=== PATIENT | male | born 1955 | race Caucasian/White ===

== ENCOUNTER 2024-09-12 09:22 | Inpatient (IN) | payer MEDICARE, BC ==
[~2024-09-12] VITALS: Ht 177.8 cm; Wt 85.0 kg
[~2024-09-12 09:22] MED LIST: AMI200T PO; ASPI-1265 PO; ATOR10TA70 PO; CHOL10002 PO; CLOP75TA34 PO; GABA-532 PO; GLIP-192 PO; LEVO100T9 PO; LOP25T PO; LOSA50TA64 PO; METF-900 PO; NITR0.4T51 SL; OMEP40CA21 PO
[2024-09-12 10:05] LABS: BASOPHILS # (AUTO) 0.1 X10'3 (0-0.2); BASOPHILS % (AUTO) 0.6 % (0-1); EOSINOPHILS # (AUTO) 0.1 X10'3 (0-0.9); EOSINOPHILS % (AUTO) 1.1 % (0-6); HEMATOCRIT 47.5 % (42.0-52.0); LYMPHOCYTES # (AUTO) 1.9 X10'3 (1.1-4.8); LYMPHOCYTES % (AUTO) 16.5 % (21-51); MEAN CORPUSCULAR HEMOGLOBIN 31.4 PG (27.0-31.0); MEAN CORPUSCULAR HGB CONC 33.6 g/dL (33.0-36.5); MEAN CORPUSCULAR VOLUME 93.3 FL (78-98); MEAN PLATELET VOLUME 8.7 FL (7.4-10.4); MONOCYTES # (AUTO) 1.3 X10'3 (0-0.9); MONOCYTES % (AUTO) 10.9 % (2-12); NEUTROPHILS # (AUTO) 8.4 X10'3 (1.8-7.7); NEUTROPHILS % (AUTO) 70.9 % (42-75); PLATELET COUNT 259 X10'3 (140-440); RED BLOOD COUNT 5.09 X10'6 (4.70-6.10); WHITE BLOOD COUNT 11.8 X10'3 (4.5-11.0)
[2024-09-12 10:24] LABS: ALANINE AMINOTRANSFERASE 13 U/L (12-78); ALBUMIN 3.5 G/DL (3.4-5.0); ALBUMIN/GLOBULIN RATIO 0.8 (1.1-1.5); ALKALINE PHOSPHATASE 63 IU/L (46-116); ANION GAP 11 (8-16); ASPARTATE AMINO TRANSFERASE 6 U/L (10-37); BILIRUBIN,TOTAL 0.8 MG/DL (0.1-1.0); BLOOD UREA NITROGEN 29 MG/DL (7-18); BUN/CREATININE RATIO 18.4 (10.0-20.0); CALCIUM 9.9 MG/DL (8.5-10.1); CHLORIDE 102 MMOL/L (99-107); CREATININE 1.58 MG/DL (0.60-1.10); GLUCOSE 185 MG/DL (70-104); POTASSIUM 5.1 MMOL/L (3.5-5.1); SODIUM 139 MMOL/L (135-145); TOTAL CARBON DIOXIDE 25.9 MMOL/L (24-32); TOTAL PROTEIN 7.9 G/DL (6.4-8.2); eCRCL 46 ML/MIN; eGFR 43 ML/MIN
[2024-09-12] MEDS ORDERED: iohexol 350MG/ML 100ml bottle IV ONE (11:49)
[2024-09-12] MEDS: TETanus/Pertussis (Acell)/Diphther VAC/PF (Tdap-Adult) 0.5ml syringe IMVAC ONE (11:52)
[2024-09-12 12:01] LABS: APTT 28 SECONDS (22-32); INR 1.1 INR; PROTHROMBIN TIME 11.4 SECONDS (9.0-12.0)
[2024-09-12] MEDS: normal saline 1000ml 1,000 ML IV ONE (12:29)
[2024-09-12] MEDS ORDERED: potassium Cl 20 mEq SR tablet PO PRN ×2 (14:20)
[2024-09-12] MEDS ORDERED: magnesium sulf-water 4G/100mL 100 ML IV PRN (14:20)
[2024-09-12] MEDS ORDERED: mag hydrox/Alum hydrox/simeth 30ml oral suspension PO PRN (14:20)
[2024-09-12] MEDS ORDERED: magnesium Cl slow-release 64mg tablet PO PRN (14:20)
[2024-09-12] MEDS ORDERED: magnesium sulf-water 2g/50mL 50 ML IV PRN (14:20)
[2024-09-12] MEDS ORDERED: ondansetron/PF 4mg/2ml inj IV PRN (14:20)
[2024-09-12] MEDS ORDERED: potassium Cl 40MEQ/1/2NS 520ml 520 ML IV PRN (14:20)
[2024-09-12] MEDS: normal saline 1000ml 1,000 ML IV SCH (14:40)
[2024-09-12] MEDS ORDERED: METF-900 PO ×2 (14:57)
[2024-09-12] MEDS ORDERED: FERR325T28 PO (14:59)
[2024-09-12] MEDS: aspirin 81mg, enteric-coated 1 TAB TABLET.DR PO SCH (15:04)
[2024-09-12] MEDS: CefTRIAXone/D5W-Rocephin 1gm 50 ML IV SCH (15:04)
[2024-09-12] MEDS: PERFLUTREN PROTEIN-A MICROSPHR (Optison) 0.22 MG/ML 3ML VIAL IV ONE (15:19)
[2024-09-12 15:34] LABS: HEMOGLOBIN A1C 5.2 % (4.5-6.2)
[2024-09-12] MEDS ORDERED: ceFAZolin/D5W- 1GM premix 50 ML IV SCH (16:00)
[2024-09-12] MEDS: K and/or MAG REPLACEMENT MC SCH (16:31)
[2024-09-12] MEDS: amiodarone 200mg tablet PO SCH (19:10)
[2024-09-12] MEDS ORDERED: labetalol 20mg/4ml (5mg/ml) syringe IV PRN (19:20)
[2024-09-12] MEDS ORDERED: glucagon, human recombinant 1mg kit SUBCUT PRN (19:25)
[2024-09-12] MEDS ORDERED: DEXTROSE 15 GM of carb/4 tabs (each vial/BOTTLE has 4 tablets) PO PRN ×2 (19:25)
[2024-09-12] MEDS ORDERED: dextrose 50%-water 50ml dispensing syringe IV PRN ×2 (19:25)
[2024-09-12 20:06] LABS: ALANINE AMINOTRANSFERASE 10 U/L (12-78); ALBUMIN 3.2 G/DL (3.4-5.0); ALBUMIN/GLOBULIN RATIO 0.7 (1.1-1.5); ALKALINE PHOSPHATASE 55 IU/L (46-116); ASPARTATE AMINO TRANSFERASE 12 U/L (10-37); BILIRUBIN,DIRECT 0.2 MG/DL (0-0.3); BILIRUBIN,TOTAL 0.7 MG/DL (0.1-1.0); FREE T4 (FREE THYROXINE) 1.39 NG/DL (0.73-1.40); THYROID STIMULATING HORMONE 1.89 ulU/ml (0.34-4.50); TOTAL PROTEIN 7.7 G/DL (6.4-8.2)
[2024-09-12] MEDS: atorvastatin 10mg tablet PO SCH (20:50)
[2024-09-12] MEDS: gabapentin 300mg capsule PO SCH (20:51)
[2024-09-12] MEDS: levoTHYROXINE 100mcg tablet PO SCH (20:51)
[2024-09-12] MEDS: docusate sod 100mg capsule PO SCH (20:51)
[2024-09-12] MEDS: metoprolol tartrate 25mg tablet PO SCH (20:55)
[2024-09-12] MEDS: INSULIN LISPRO 100 UNIT/ML INSULN.PEN MULTI-DOSE SQ SCH (21:00)
[2024-09-13 04:38] LABS: BASOPHILS # (AUTO) 0.1 X10'3 (0-0.2); BASOPHILS % (AUTO) 0.4 % (0-1); EOSINOPHILS # (AUTO) 0.2 X10'3 (0-0.9); EOSINOPHILS % (AUTO) 1.2 % (0-6); HEMATOCRIT 44.9 % (42.0-52.0); HEMOGLOBIN 14.7 g/dl (14.0-17.9); LYMPHOCYTES # (AUTO) 1.6 X10'3 (1.1-4.8); LYMPHOCYTES % (AUTO) 11.4 % (21-51); MEAN CORPUSCULAR HGB CONC 32.7 g/dL (33.0-36.5); MEAN CORPUSCULAR VOLUME 94.8 FL (78-98); MONOCYTES # (AUTO) 1.5 X10'3 (0-0.9); MONOCYTES % (AUTO) 10.5 % (2-12); NEUTROPHILS # (AUTO) 10.6 X10'3 (1.8-7.7); NEUTROPHILS % (AUTO) 76.5 % (42-75); PLATELET COUNT 264 X10'3 (140-440); RED BLOOD COUNT 4.74 X10'6 (4.70-6.10); RED CELL DISTRIBUTION WIDTH 14.9 % (11.5-14.5); WHITE BLOOD COUNT 13.9 X10'3 (4.5-11.0)
[2024-09-13] MEDS: diltiazem 5mg/ml 5ml inj. IV ONE ×2 (04:50→06:10)
[2024-09-13 05:02] LABS: ANION GAP 15 (8-16); BLOOD UREA NITROGEN 27 MG/DL (7-18); BUN/CREATININE RATIO 20.3 (10.0-20.0); CALCIUM 9.1 MG/DL (8.5-10.1); CHLORIDE 102 MMOL/L (99-107); CHOLESTEROL 116 MG/DL (0-200); CREATININE 1.33 MG/DL (0.60-1.10); GLUCOSE 184 MG/DL (70-104); HDL CHOLESTEROL 39 MG/DL (35-60); LDL CHOLESTEROL 61 MG/DL (50-100); MAGNESIUM 1.5 MG/DL (1.5-2.4); POTASSIUM 4.3 MMOL/L (3.5-5.1); SODIUM 140 MMOL/L (135-145); TOTAL CARBON DIOXIDE 23.5 MMOL/L (24-32); TRIGLYCERIDES 108 MG/DL (20-135); eCRCL 54 ML/MIN; eGFR 53 ML/MIN
[2024-09-13 13:00] LABS: BILIRUBIN,URINE NEGATIVE (Neg); CLARITY,URINE CLEAR (Clear); COLOR,URINE YELLOW (Yellow); GLUCOSE, URINE NEGATIVE (Neg); KETONES,URINE NEGATIVE (Neg); LEUKOCYTE ESTERASE ,URINE NEGATIVE (Neg); NITRITES, URINE NEGATIVE (Neg); OCCULT BLOOD,URINE NEGATIVE (Neg); PROTEIN,URINE 30 mg/dl (Neg); UROBILINOGEN,URINE 0.2 E.U/dL (0.2-1.0)
[2024-09-13 13:01] LABS: UA COLLECTION TYPE URINAL
[2024-09-13 13:06] LABS: BACTERIA,URINE NONE SEEN /HPF (Neg); WBC,URINE 0-4 /HPF (0-4)
[2024-09-13 13:07] LABS: COARSE GRANULAR CAST 0-3 /LPF (NEGATIVE); SQUAMOUS EPITHELIAL CELL,UR FEW /LPF (FEW)
[2024-09-13 13:26] LABS: URINE AMPHETAMINE SCREEN NEGATIVE (Neg); URINE BARBITUATE SCREEN NEGATIVE (Neg); URINE BENZODIAZEPINES SCREEN NEGATIVE (Neg); URINE CANNABINOID SCREEN NEGATIVE (Neg); URINE COCAINE SCREEN NEGATIVE (Neg); URINE METHADONE SCREEN NEGATIVE (Neg); URINE OPIATE SCREEN NEGATIVE (Neg); URINE PHENCYCLIDINE SCREEN NEGATIVE (Neg)
[2024-09-13] MEDS ORDERED: GADOTERATE MEGLUMINE 7.5 MMOL/15 ML VIAL IV ONE (17:42)
[2024-09-13 18:10] VITALS: BP 135/75; PULSE 114; O2SAT 97
[2024-09-13 20:00] VITALS: BP 134/80; PULSE 106; RESP 23; O2SAT 99
[2024-09-13] MEDS: acetaminophen 325mg tablet PO PRN (21:37)
[2024-09-13 22:00] VITALS: BP 151/86; PULSE 128; RESP 23; TEMP 97.5; O2SAT 99
[2024-09-13] MEDS: LORazepam 2 mg/ml vial IV PRN (23:14)
[2024-09-14] VITALS (8 sets, daily range): BP systolic 138–171; BP diastolic 69–104; PULSE 98–138; RESP 16–20; TEMP 97.4–98.8; O2SAT 95–98
[2024-09-14] MEDS: metoprolol tartrate 1mg/ml inj IV ONE (02:29)
[2024-09-14] MEDS: haloperidol lactate 5mg/ml inj IM ONE (05:40)
[2024-09-14 06:44] LABS: BASOPHILS % (AUTO) 0.4 % (0-1); EOSINOPHILS # (AUTO) 0.1 X10'3 (0-0.9); EOSINOPHILS % (AUTO) 1.4 % (0-6); HEMATOCRIT 44.2 % (42.0-52.0); HEMOGLOBIN 14.7 g/dl (14.0-17.9); LYMPHOCYTES # (AUTO) 1.5 X10'3 (1.1-4.8); LYMPHOCYTES % (AUTO) 15.6 % (21-51); MEAN CORPUSCULAR HEMOGLOBIN 31.4 PG (27.0-31.0); MEAN CORPUSCULAR HGB CONC 33.3 g/dL (33.0-36.5); MEAN CORPUSCULAR VOLUME 94.4 FL (78-98); MONOCYTES # (AUTO) 1.3 X10'3 (0-0.9); MONOCYTES % (AUTO) 13.4 % (2-12); NEUTROPHILS # (AUTO) 6.6 X10'3 (1.8-7.7); NEUTROPHILS % (AUTO) 69.2 % (42-75); PLATELET COUNT 221 X10'3 (140-440); RED BLOOD COUNT 4.69 X10'6 (4.70-6.10); RED CELL DISTRIBUTION WIDTH 14.8 % (11.5-14.5); WHITE BLOOD COUNT 9.6 X10'3 (4.5-11.0)
[2024-09-14 06:47] LABS: ALBUMIN 2.8 G/DL (3.4-5.0); ANION GAP 9 (8-16); BLOOD UREA NITROGEN 21 MG/DL (7-18); BUN/CREATININE RATIO 19.6 (10.0-20.0); CALCIUM 9.6 MG/DL (8.5-10.1); CHLORIDE 104 MMOL/L (99-107); CREATININE 1.07 MG/DL (0.60-1.10); GLUCOSE 169 MG/DL (70-104); MAGNESIUM 1.6 MG/DL (1.5-2.4); SODIUM 139 MMOL/L (135-145); TOTAL CARBON DIOXIDE 25.8 MMOL/L (24-32); eCRCL 76 ML/MIN; eGFR 68 ML/MIN
[2024-09-14] MEDS: metoprolol tartrate 25mg tablet PO ONE (10:02)
[2024-09-14] MEDS ORDERED: OLANZapine **IM** 10 mg inj. IM ONE (12:40)
[2024-09-14] MEDS ORDERED: OLANZapine **IM** 10 mg inj. IM PRN (14:05)
[2024-09-14] MEDS: ciprofloxacin 0.3% 2.5ml ophthalmic solution EACHEYE ONE (15:03)
[2024-09-14] MEDS: metoprolol tartrate 50mg tablet PO SCH (19:19)
[2024-09-14] MEDS: HYDROcodone/acetaminophen 5mg/325mg tablet PO PRN (20:51)
[2024-09-15] VITALS (8 sets, daily range): BP systolic 129–147; BP diastolic 59–86; PULSE 95–141; RESP 11–20; TEMP 97.2–98.6; O2SAT 97–99
[2024-09-15 07:11] LABS: BASOPHILS # (AUTO) 0.1 X10'3 (0-0.2); BASOPHILS % (AUTO) 0.8 % (0-1); EOSINOPHILS # (AUTO) 0.2 X10'3 (0-0.9); EOSINOPHILS % (AUTO) 2.8 % (0-6); HEMATOCRIT 40.7 % (42.0-52.0); HEMOGLOBIN 13.6 g/dl (14.0-17.9); LYMPHOCYTES # (AUTO) 1.2 X10'3 (1.1-4.8); LYMPHOCYTES % (AUTO) 14.3 % (21-51); MEAN CORPUSCULAR HEMOGLOBIN 31.2 PG (27.0-31.0); MEAN CORPUSCULAR HGB CONC 33.3 g/dL (33.0-36.5); MEAN CORPUSCULAR VOLUME 93.7 FL (78-98); MEAN PLATELET VOLUME 9.1 FL (7.4-10.4); MONOCYTES % (AUTO) 11.7 % (2-12); NEUTROPHILS # (AUTO) 6.1 X10'3 (1.8-7.7); NEUTROPHILS % (AUTO) 70.4 % (42-75); PLATELET COUNT 237 X10'3 (140-440); RED BLOOD COUNT 4.34 X10'6 (4.70-6.10); RED CELL DISTRIBUTION WIDTH 14.7 % (11.5-14.5); WHITE BLOOD COUNT 8.7 X10'3 (4.5-11.0)
[2024-09-15 07:31] LABS: ALBUMIN 2.3 G/DL (3.4-5.0); ANION GAP 9 (8-16); BLOOD UREA NITROGEN 17 MG/DL (7-18); BUN/CREATININE RATIO 18.5 (10.0-20.0); CHLORIDE 109 MMOL/L (99-107); CREATININE 0.92 MG/DL (0.60-1.10); GLUCOSE 138 MG/DL (70-104); MAGNESIUM 1.7 MG/DL (1.5-2.4); SODIUM 142 MMOL/L (135-145); TOTAL CARBON DIOXIDE 23.9 MMOL/L (24-32); eCRCL 89 ML/MIN; eGFR 81 ML/MIN
[2024-09-15] MEDS: metoprolol tartrate 1mg/ml inj IV STA (15:16)
[2024-09-15] MEDS ORDERED: DULA1.5P SUBCUT (17:51)
[2024-09-15] MEDS ORDERED: SOTA80TA73 PO (17:51)
[2024-09-15] MEDS ORDERED: PANT-47 PO (17:51)
[2024-09-15] MEDS ORDERED: AMLO2.5T2 PO (17:51)
[2024-09-15] MEDS ORDERED: HYDR12.55 PO (17:51)
[2024-09-15] MEDS: metoprolol tartrate 25mg tablet PO SCH (19:40)
[2024-09-15] MEDS: sotalol 80mg tablet PO SCH (19:41)
[2024-09-15] MEDS: diltiazem 5mg/ml 5ml inj. IV ONE (22:45)
[2024-09-16] VITALS (13 sets, daily range): BP systolic 132–182; BP diastolic 59–105; PULSE 100–164; RESP 14–27; TEMP 96.9–99.4; O2SAT 96–98
[2024-09-16] MEDS: metoprolol tartrate 1mg/ml inj IV ONE ×3 (04:03→16:28)
[2024-09-16 06:33] LABS: BASOPHILS % (AUTO) 0.5 % (0-1); EOSINOPHILS # (AUTO) 0.2 X10'3 (0-0.9); EOSINOPHILS % (AUTO) 1.8 % (0-6); HEMATOCRIT 37.8 % (42.0-52.0); HEMOGLOBIN 12.6 g/dl (14.0-17.9); LYMPHOCYTES # (AUTO) 1.1 X10'3 (1.1-4.8); LYMPHOCYTES % (AUTO) 12.1 % (21-51); MEAN CORPUSCULAR HEMOGLOBIN 31.1 PG (27.0-31.0); MEAN CORPUSCULAR HGB CONC 33.3 g/dL (33.0-36.5); MEAN CORPUSCULAR VOLUME 93.4 FL (78-98); MEAN PLATELET VOLUME 8.8 FL (7.4-10.4); MONOCYTES # (AUTO) 1.2 X10'3 (0-0.9); MONOCYTES % (AUTO) 13.1 % (2-12); NEUTROPHILS # (AUTO) 6.7 X10'3 (1.8-7.7); NEUTROPHILS % (AUTO) 72.5 % (42-75); PLATELET COUNT 247 X10'3 (140-440); RED BLOOD COUNT 4.05 X10'6 (4.70-6.10); RED CELL DISTRIBUTION WIDTH 14.5 % (11.5-14.5); WHITE BLOOD COUNT 9.2 X10'3 (4.5-11.0)
[2024-09-16 06:37] LABS: ALBUMIN 2.3 G/DL (3.4-5.0); ANION GAP 12 (8-16); BLOOD UREA NITROGEN 15 MG/DL (7-18); BUN/CREATININE RATIO 14.9 (10.0-20.0); CALCIUM 8.2 MG/DL (8.5-10.1); CHLORIDE 108 MMOL/L (99-107); CREATININE 1.01 MG/DL (0.60-1.10); GLUCOSE 152 MG/DL (70-104); MAGNESIUM 1.2 MG/DL (1.5-2.4); SODIUM 141 MMOL/L (135-145); TOTAL CARBON DIOXIDE 21.5 MMOL/L (24-32); eCRCL 69 ML/MIN; eGFR 73 ML/MIN
[2024-09-16] MEDS: pantoprazole 40mg Tablet.DR PO SCH (08:32)
[2024-09-16] MEDS ORDERED: magnesium sulf-water 2g/50mL 50 ML IV PRN (16:55)
[2024-09-16] MEDS ORDERED: magnesium sulf-water 4G/100mL 100 ML IV PRN (16:55)
[2024-09-16] MEDS: digoxin 250mcg/ml 2ml ampule IV ONE (16:56)
[2024-09-16] MEDS: hydrALAZINE 20mg/ml inj. IV ONE (18:07)
[2024-09-16] MEDS ORDERED: diltiazem-D5W 125mg/125ml 125 ML IV SCH (19:40)
[2024-09-16] MEDS: diltiazem 5mg/ml 5ml inj. IV ONE (20:36)
[2024-09-16] MEDS: diltiazem-NS 100mg/100ml 100 ML IV SCH (21:06)
[2024-09-16] MEDS ORDERED: digoxin 250mcg/ml 2ml ampule IV ONE (22:20)
[2024-09-17] VITALS (13 sets, daily range): BP systolic 104–165; BP diastolic 56–99; PULSE 76–112; RESP 15–24; TEMP 96.8–97.8; O2SAT 96–100
[2024-09-17] MEDS ORDERED: digoxin 250mcg/ml 2ml ampule IV ONE (06:20)
[2024-09-17 07:14] LABS: BASOPHILS % (AUTO) 0.4 % (0-1); EOSINOPHILS # (AUTO) 0.1 X10'3 (0-0.9); EOSINOPHILS % (AUTO) 1.2 % (0-6); HEMATOCRIT 41.7 % (42.0-52.0); HEMOGLOBIN 13.9 g/dl (14.0-17.9); LYMPHOCYTES % (AUTO) 10.2 % (21-51); MEAN CORPUSCULAR HGB CONC 33.3 g/dL (33.0-36.5); MEAN CORPUSCULAR VOLUME 93.3 FL (78-98); MEAN PLATELET VOLUME 8.6 FL (7.4-10.4); MONOCYTES # (AUTO) 1.4 X10'3 (0-0.9); MONOCYTES % (AUTO) 14.2 % (2-12); NEUTROPHILS # (AUTO) 7.5 X10'3 (1.8-7.7); PLATELET COUNT 307 X10'3 (140-440); RED BLOOD COUNT 4.47 X10'6 (4.70-6.10); RED CELL DISTRIBUTION WIDTH 14.5 % (11.5-14.5); WHITE BLOOD COUNT 10.2 X10'3 (4.5-11.0)
[2024-09-17] MEDS: sotalol HCl 40mg (1/2 tablet) PO SCH (07:32)
[2024-09-17 07:37] LABS: ALBUMIN 2.4 G/DL (3.4-5.0); ANION GAP 10 (8-16); BLOOD UREA NITROGEN 12 MG/DL (7-18); BUN/CREATININE RATIO 12.2 (10.0-20.0); CALCIUM 9.1 MG/DL (8.5-10.1); CHLORIDE 104 MMOL/L (99-107); CREATININE 0.98 MG/DL (0.60-1.10); GLUCOSE 156 MG/DL (70-104); POTASSIUM 4.6 MMOL/L (3.5-5.1); SODIUM 139 MMOL/L (135-145); TOTAL CARBON DIOXIDE 25.5 MMOL/L (24-32); eCRCL 71 ML/MIN; eGFR 75 ML/MIN
[2024-09-17] MEDS: diltiazem 30mg tablet PO SCH (14:08)
[2024-09-17] MEDS: lactose-reduced food (Ensure Enlive) - 237ml bottle PO SCH (18:37)
[2024-09-18 02:00] VITALS: BP 144/64; PULSE 97; RESP 24; TEMP 97.3; O2SAT 97
[2024-09-18] MEDS: magnesium hydroxide 30ml (MOM) UD suspension PO PRN (03:01)
[2024-09-18 06:00] VITALS: BP 150/92; PULSE 76; RESP 20; TEMP 97; O2SAT 98
[2024-09-18 06:11] LABS: BASOPHILS # (AUTO) 0.1 X10'3 (0-0.2); BASOPHILS % (AUTO) 0.7 % (0-1); EOSINOPHILS # (AUTO) 0.2 X10'3 (0-0.9); EOSINOPHILS % (AUTO) 1.9 % (0-6); HEMATOCRIT 37.4 % (42.0-52.0); HEMOGLOBIN 12.6 g/dl (14.0-17.9); LYMPHOCYTES # (AUTO) 1.2 X10'3 (1.1-4.8); LYMPHOCYTES % (AUTO) 13.9 % (21-51); MEAN CORPUSCULAR HGB CONC 33.7 g/dL (33.0-36.5); MEAN CORPUSCULAR VOLUME 92.2 FL (78-98); MEAN PLATELET VOLUME 8.2 FL (7.4-10.4); MONOCYTES # (AUTO) 1.1 X10'3 (0-0.9); MONOCYTES % (AUTO) 13.5 % (2-12); NEUTROPHILS # (AUTO) 5.9 X10'3 (1.8-7.7); PLATELET COUNT 299 X10'3 (140-440); RED BLOOD COUNT 4.06 X10'6 (4.70-6.10); RED CELL DISTRIBUTION WIDTH 14.6 % (11.5-14.5); WHITE BLOOD COUNT 8.5 X10'3 (4.5-11.0)
[2024-09-18 06:43] LABS: ALANINE AMINOTRANSFERASE 28 U/L (12-78); ALBUMIN/GLOBULIN RATIO 0.5 (1.1-1.5); ALKALINE PHOSPHATASE 54 IU/L (46-116); ANION GAP 11 (8-16); ASPARTATE AMINO TRANSFERASE 21 U/L (10-37); BILIRUBIN,TOTAL 1.2 MG/DL (0.1-1.0); BLOOD UREA NITROGEN 14 MG/DL (7-18); BUN/CREATININE RATIO 16.3 (10.0-20.0); CALCIUM 8.4 MG/DL (8.5-10.1); CHLORIDE 106 MMOL/L (99-107); CREATININE 0.86 MG/DL (0.60-1.10); GLUCOSE 165 MG/DL (70-104); POTASSIUM 3.7 MMOL/L (3.5-5.1); SODIUM 140 MMOL/L (135-145); TOTAL CARBON DIOXIDE 23.5 MMOL/L (24-32); eCRCL 81 ML/MIN; eGFR 88 ML/MIN
[2024-09-18 08:00] VITALS: RESP 20; O2SAT 98
[2024-09-18 11:00] VITALS: BP 110/55; PULSE 57; RESP 18; TEMP 97.8; O2SAT 92
== END 2024-09-18 14:35 | DRG 64 ==
LOC: ER 09:22 → ED HOLD 14:30 → PCU 3S 09-13 18:00
PROVIDERS: ADMIT Family Medicine; ATTEND Family Medicine
PROC: B3251ZZ Computerized Tomography (CT Scan) of Bilateral Common Carotid Arteries using Low Osmolar Contrast (ICD-10-PCS; principal; 2024-09-12)
PROC: B32G1ZZ Computerized Tomography (CT Scan) of Bilateral Vertebral Arteries using Low Osmolar Contrast (ICD-10-PCS; 2024-09-12)
PROC: B3201ZZ Computerized Tomography (CT Scan) of Thoracic Aorta using Low Osmolar Contrast (ICD-10-PCS; 2024-09-12)
PROC: B32R1ZZ Computerized Tomography (CT Scan) of Intracranial Arteries using Low Osmolar Contrast (ICD-10-PCS; 2024-09-12)
PROC: B3281ZZ Computerized Tomography (CT Scan) of Bilateral Internal Carotid Arteries using Low Osmolar Contrast (ICD-10-PCS; 2024-09-12)
DX: I63.9 Cerebral infarction, unspecified (principal); I61.1 Nontraumatic intracerebral hemorrhage in hemisphere, cortical; N17.0 Acute kidney failure with tubular necrosis; L03.114 Cellulitis of left upper limb; I48.91 Unspecified atrial fibrillation; I25.10 Atherosclerotic heart disease of native coronary artery without angina pectoris; I12.9 Hypertensive chronic kidney disease with stage 1 through stage 4 chronic kidney disease, or unspecified chronic kidney disease; E11.22 Type 2 diabetes mellitus with diabetic chronic kidney disease; R61 Generalized hyperhidrosis; G89.29 Other chronic pain; I95.9 Hypotension, unspecified; N18.32 Chronic kidney disease, stage 3b; E78.5 Hyperlipidemia, unspecified; L98.499 Non-pressure chronic ulcer of skin of other sites with unspecified severity; E03.9 Hypothyroidism, unspecified; M25.462 Effusion, left knee; R29.701 NIHSS score 1; W01.0XXA Fall on same level from slipping, tripping and stumbling without subsequent striking against object, initial encounter; Y93.89 Activity, other specified; Z79.899 Other long term (current) drug therapy; Z79.84 Long term (current) use of oral hypoglycemic drugs; Z95.1 Presence of aortocoronary bypass graft; Z87.891 Personal history of nicotine dependence; Z78.1 Physical restraint status; Y92.89 Other specified places as the place of occurrence of the external cause; Y99.8 Other external cause status
CPT/HCPCS: 36415; 70450; 70496; 70498; 70553; 71045; 73090; 73560; 73700; 76882; 80048; 80053; 80061; 80076; 80305; 81001; 82948; 83036; 83605; 83735; 84439; 84443; 84484; 85025; 85610; 85730; 87040; 87081; 90715; 92508; 92616; 93005; 93306; 97116; 97161; 97530; 99291; A6209; A6213; A6223; A6258; A6446; A6449; A6590; A9575; G0378; J0360; J0696; J1160; J1630; J1815; J2060; J3490; J7030; Q9967

== ENCOUNTER → 2024-11-01 | Outpatient (CLI) | payer MEDICARE, BC ==
[~2024-11-01] MED LIST changes: -AMI200T PO; +AMLO2.5T2 PO; +DULA1.5P SUBCUT; +FERR325T28 PO; +GADOTERATE MEGLUMINE 7.5 MMOL/15 ML VIAL IV ONE; +HYDR12.55 PO; -LOSA50TA64 PO; -OMEP40CA21 PO; +PANT-47 PO; +SOTA80TA73 PO
== END | disposition home or self-care (01) ==
LOC: MRI 12:20
PROVIDERS: ATTEND Internal Medicine
DX: G31.9 Degenerative disease of nervous system, unspecified (principal); I69.30 Unspecified sequelae of cerebral infarction; I69.20 Unspecified sequelae of other nontraumatic intracranial hemorrhage; N18.32 Chronic kidney disease, stage 3b
CPT/HCPCS: 70553; A9575